=== PATIENT | female | born 1970 | race Caucasian/White ===

== ENCOUNTER 2020-05-16 20:49 | Emergency (ER) | payer OTHER, SELFPAY ==
[2020-05-16 21:09] VITALS: BP 126/97; PULSE 115; RESP 18; TEMP 37.3; O2SAT 98; BMI 30.2
--- NOTE | 2020-05-17 01:29 | ED.EPISTAXIS ---
History of Present Illness General Chief Complaint: General Medical Stated Complaint: VAG BLEED Time Seen by Provider: 05/17/20 01:18 Source: patient Mode of arrival: ambulatory Limitations: no limitations History of Present Illness HPI Narrative: Patient noticed small amount of bleeding from both nostrils just prior to arrival stopped After arriving the ER patient never had epistaxis before. About 2 weeks ago patient has small amount of bright-red bleed per rectum no bruising no petechiae no vaginal bleed no headache no history of prior epistaxis or rectal bleed. Patient does have a history of hemorrhoids Location: Yes bilateral nares Onset/current episode: Yes hour(s) Related Data Allergies Allergy/AdvReac Type Severity Reaction Status Date / Time metronidazole [From Flagyl] Allergy Unknown UNKNOWN Unverified 11/02/19 17:56 From Depo-Provera Allergy Unknown HAIR LOSS Uncoded 11/02/19 17:56 From Flagyl Allergy Unknown UNKNOWN Uncoded 11/02/19 17:56 Review of Systems Review of Systems: Constitutional : No Weight loss, No Fever, No Chills ENT/Mouth : No sore throat, No Rhinorrhea Eyes: No Eye Pain, No Swelling Cardiovascular : No Chest Pain, no palpitations Respiratory : No Cough, No Sputum, no shortness of breath Gastrointestinal : no Nausea, No Vomiting, No Diarrhea, No abdominal Pain, no black stools Genitourinary : No Dysuria, No Urinary Frequency Musculoskeletal : No joint pain, No Myalgias, No Joint Swelling Skin : No Skin Lesions, No rash Neuro : No Weakness, No Numbness, No Dizziness, No Headache Psych : No Anxiety/Panic, No Depression Heme/Lymph: No Bruising, No Lymphadenopathy Endocrine : No Polyuria, No Polydipsia All other systems reviewed and are negative Yes all other systems are reviewed and are negative [facility] Past Medical History Medical History No significant past medical history Social History Social History Advance Directives: No Advance Directives Information Provided: No Physical Exam Vital Signs: Vital Signs: Last Vital Signs Temp 99.2 F 05/16/20 21:09 Pulse 115 H 05/16/20 21:09 Resp 18 05/16/20 21:09 BP 126/97 H 05/16/20 21:09 Pulse Ox 98 05/16/20 21:09 Body Mass Index 30.2 Appearance: Alert. Oriented X3. No acute distress. Eyes: Pupils equal, round and reactive to light. ENT: Pharynx normal. No bleeding from nares no blood clots Neck: Normal inspection. Neck supple. CVS: Normal heart rate and rhythm. Pulses normal. Respiratory: No respiratory distress. Breath sounds normal. Abdomen: Soft and nontender. Bowel sounds are present, no mass palpable, no CVA tenderness Skin: Skin warm and dry. Normal skin color. Normal skin turgor. Extremities: No lower extremity edema. Neuro: Oriented X 3. No motor deficit. No sensory deficit. MDM - Epistaxis MDM Narrative Medical decision making narrative: Patient with minor epistaxis stable labs advised to follow with PCP no active bleeding at this time Lab Data Attestation: I reviewed the patient's lab results. Result diagrams: 05/17/20 02:00 05/17/20 02:00 Labs: Lab Results 05/17/20 05/17/20 05/17/20 Range/Units 02:00 02:00 02:00 WBC 7.5 (4.8-10.8) X10*3/uL RBC 3.78 L (4.20-5.50) X10*6/uL Hgb 12.8 (12.0-16.0) g/dl Hct 37.0 (37-47) % MCV 97.9 (80-98) fL MCH 33.9 H (27.0-33.0) pg MCHC 34.6 (31.0-35.0) g/dl RDW 11.9 (11.0-16.0) % Plt Count 253 (160-400) X10*3/uL MPV 9.4 (9.4-12.3) fL Immature Gran % (Auto) 0.3 (0.0-0.4) % Neut % (Auto) 47.7 (45-73) % Lymph % (Auto) 46.3 H (20-40) % [place] % (Auto) 4.8 (2-11) % Eos % (Auto) 0.5 (0-4) % Baso % (Auto) 0.4 (0-2) % Lymph # (Auto) 3.5 (1.2-4.9) X10*3/uL [place] # (Auto) 0.4 (0.1-1.2) X10*3/uL Eos # (Auto) 0.0 (0.0-0.4) X10*3/uL Baso # (Auto) 0.0 (0.0-0.2) X10*3/uL Abs Immat Gran (auto) 0.02 (0.00-0.03) X10*3/uL Absolute Neuts (auto) 3.6 (2.0-8.3) X10*3/uL Absolute Nucleated RBC 0.000 (0.0-0.012) X10*3/uL Nucleated RBC % (auto) 0.0 (0.0-0.2) /100WBC PT 12.7 (10.8-13.0) SEC INR 1.1 (0.9-1.1) Sodium 142 (135-145) mmol/L Potassium 4.0 (3.3-5.1) mmol/L Chloride 106 (96-108) mmol/L Carbon Dioxide 24 (22-29) mmol/L Anion Gap 16 (12-20) BUN 8 L (9-16) mg/dL Creatinine 0.81 (0.5-1.4) mg/dL Estim Creat Clear Calc 80.4 Estimated GFR > 60 Random Glucose 135 H (60-115) mg/dL Calcium 8.6 (8.4-10.2) mg/dL Total Bilirubin < 0.2 (0.0-1.0) mg/dL Direct Bilirubin < 0.2 (0.0-0.5) mg/dL AST 21 (5-31) U/L ALT 38 H (0-31) U/L Alkaline Phosphatase 77 (39-117) U/L Total Protein 8.0 (6.5-8.0) g/dL Albumin 4.6 (3.5-5.0) g/dL Discharge Plan Discharge Clinical Impression: Acute anterior epistaxis Patient Disposition: Home, Self-Care Instructions: Nosebleed (ED) Additional Instructions: Local care as advised follow-up with PCP if Interventions: ED Discharge Assessment Last Done: 05/17/20 03:07 Discharge Date/Time: 05/17/20 03:08
[2020-05-17 02:07] LABS: Basophils Percent Auto 0.4 % (0-2); Eosinophils Percent Auto 0.5 % (0-4); Hemoglobin 12.8 g/dl (12.0-16.0); Imm Gran Abs Auto 0.02 X10*3/uL (0.00-0.03); Imm Gran Pct Auto 0.3 % (0.0-0.4); Lymphocytes Absolute Auto 3.5 X10*3/uL (1.2-4.9); Lymphocytes Percent Auto 46.3 % (20-40); MANUAL DIFF FLAG NO; Mean Corpuscular HGB Conc 34.6 g/dl (31.0-35.0); Mean Corpuscular Hemoglobin 33.9 pg (27.0-33.0); Mean Corpuscular Volume 97.9 fL (80-98); Mean Platelet Volume 9.4 fL (9.4-12.3); Monocytes Absolute Auto 0.4 X10*3/uL (0.1-1.2); Monocytes Percent Auto 4.8 % (2-11); Neutrophils Absolute Auto 3.6 X10*3/uL (2.0-8.3); Neutrophils Percent Auto 47.7 % (45-73); Platelet Count 253 X10*3/uL (160-400); Red Blood Count 3.78 X10*6/uL (4.20-5.50); Red Cell Distribution Width 11.9 % (11.0-16.0); White Blood Count 7.5 X10*3/uL (4.8-10.8)
[2020-05-17 02:27] LABS: INTERNATIONAL NORM RATIO 1.1 (0.9-1.1); Prothrombin Time 12.7 SEC (10.8-13.0)
[2020-05-17 02:35] LABS: Alanine Aminotransferase 38 U/L (0-31); Albumin Level 4.6 g/dL (3.5-5.0); Alkaline Phosphatase 77 U/L (39-117); Anion Gap 16 (12-20); Aspartate Amino Transferase 21 U/L (5-31); Bilirubin Direct < 0.2 mg/dL (0.0-0.5); Bilirubin Total < 0.2 mg/dL (0.0-1.0); Blood Urea Nitrogen 8 mg/dL (9-16); Calcium 8.6 mg/dL (8.4-10.2); Carbon Dioxide 24 mmol/L (22-29); Chloride 106 mmol/L (96-108); Creatinine Clr Calc Pharmacy 80.4; Estimated Glomerular Filt Rate > 60; Glucose Random 135 mg/dL (60-115); Sodium 142 mmol/L (135-145)
== END 2020-05-17 03:08 | disposition home or self-care (01) ==
PROVIDERS: Emergency Provider Internal Medicine
DX: R04.0 Epistaxis (principal)
CPT/HCPCS: 36415; 80048; 80076; 85025; 85610; 99283